=== PATIENT | female | born 1990 | race Caucasian/White ===

== ENCOUNTER 2016-09-18 13:10 | Emergency (ER) | payer OTHER ==
[~2016-09-18] VITALS: Ht 165.1 cm; Wt 63.6 kg
[2016-09-18 13:12] VITALS: BP 130/81
[2016-09-18] MEDS ORDERED: CEFTRIAXONE 1,000 MG ONE (13:46)
[2016-09-18] MEDS ORDERED: LIDOCAINE 1%, 20ML ONE (13:46)
[2016-09-18] MEDS ORDERED: PLEASE ENTER ALLERGIES MC SCH ×2 (14:00)
[2016-09-18] MEDS ORDERED: CEFTRIAXONE 1,000 MG IM ONE (14:00)
== END 2016-09-18 14:54 | disposition home or self-care (01) ==
LOC: ED 14:48
DX: L03.113 Cellulitis of right upper limb (principal); Z88.0 Allergy status to penicillin
CPT/HCPCS: 76881; 96372; 99284; J0696

== ENCOUNTER → 2020-04-25 | Outpatient (CLI) | payer OTHER | END | disposition home or self-care (01) | LOC: LAB 10:39 → MERGE 10:39 | PROVIDERS: ATTEND Obstetrics & Gynecology | DX: N91.5 Oligomenorrhea, unspecified (principal) | CPT/HCPCS: 36415; 82670; 83001; 83002; 83036; 84146; 84403 ==